=== PATIENT | male | born 1980 | race Caucasian/White ===

== ENCOUNTER 2019-04-09 16:22 | Emergency (ER) | payer SELFPAY ==
[~2019-04-09] VITALS: Ht 182.9 cm; Wt 104.3 kg
[2019-04-09 16:30] VITALS: BP 120/73
--- NOTE | 2019-04-09 16:45 | NUR ---
38 Y MALE BIB FAMILY C/O RIGHT FLANK PAIN X2 DAYS. PER FAMILY TRANSLATION, PTS PAIN 9/10. DENIES N/V/D. DENIES FEVER OR CHILLS, DENIES DYURIA. PT EXPERIENCING GAURDING BEHAVIOR. STATES HE HAS A CYSTS ON HIS KIDNEY. VSS AT THIS TIME. AA0X4. BED IS DOWN, LOCKED, BED RAIL X 1, ERMD TO SEE PT. HX OF KINDNEY PROBLEM
--- NOTE | 2019-04-09 17:03 | NUR ---
DR BROWN AT BEDSIDE
[2019-04-09] MEDS ORDERED: NACL 0.9% 1,000 ML IV ONE (17:12)
[2019-04-09] MEDS ORDERED: MORPHINE SULFATE 4 MG/ML SYR IVP ONE (17:15)
[2019-04-09] MEDS ORDERED: ONDANSETRON 4 MG/2 ML VIAL IVP ONE (17:15)
--- NOTE | 2019-04-09 17:23 | NUR ---
PT BEING TAKEN TO CT VIA WHEELCHAIR
[2019-04-09 17:31] LABS: APPEARANCE,URINE CLEAR (CLEAR); BILIRUBIN,URINE NEGATIVE (NEGATIVE); BLOOD, URINE TRACE-I (NEGATIVE); COLOR,URINE YELLOW (YELLOW); LEUKOCYTE ESTERASE ,URINE NEGATIVE (NEGATIVE); NITRITE, URINE NEGATIVE (NEGATIVE); UGLUCOSE NEGATIVE (NEGATIVE)
--- NOTE | 2019-04-09 17:49 | NUR ---
KETORALAC AND MORPHINE IVP BEING ADMINISTERED AT THIS TIME
[2019-04-09 17:56] LABS: BASOPHILS # (AUTO) 0.1 K/uL (0.00-0.22); BASOPHILS % (AUTO) 0.5 % (0.0-2.0); EOSINOPHILS # (AUTO) 0.4 K/uL (0-0.4); EOSINOPHILS % (AUTO) 3.3 % (0.0-4.0); HEMATOCRIT 45.3 % (36-52); HEMOGLOBIN 15.5 g/dL (12.0-18.0); LYMPHOCYTES # (AUTO) 2.1 K/uL (2.0-11.5); LYMPHOCYTES % (AUTO) 19.4 % (20.5-51.1); MEAN CORPUSCULAR HEMOGLOBIN 31 pg (27-31); MEAN CORPUSCULAR HGB CONC 34 g/dL (33-37); MEAN CORPUSCULAR VOLUME 90.7 fL (80-94); MONOCYTES # (AUTO) 0.9 K/uL (0.8-1.0); MONOCYTES % (AUTO) 8.8 % (1.7-9.3); NEUTROPHILS # (AUTO) 7.2 K/uL (1.8-7.7); PLATELET COUNT (AUTO) 217 K/uL (140-450); RED CELL DISTRIBUTION WIDTH 13.1 % (11.6-13.7); WHITE BLOOD COUNT (AUTO) 10.6 K/uL (4.8-10.8)
[2019-04-09 18:01] LABS: ANION GAP 15.1 (8-16); CARBON DIOXIDE 26.9 mmol/L (21-32); CREATININE 1.4 mg/dL (0.7-1.3)
[2019-04-09 18:07] LABS: ALBUMIN 4.1 g/dL (3.4-5.0); TOTAL BILIRUBIN 0.8 mg/dL (0.0-1.0)
--- NOTE | 2019-04-09 18:25 | NUR ---
VSS AT THIS TIME. AA0X4. PAIN 02/04.
[2019-04-09 18:40] VITALS: BP 140/75
--- NOTE | 2019-04-09 18:40 | NUR ---
Patient discharged with v/s stable. Written and verbal after care instructions given and explained. Patient alert, oriented and verbalized understanding of instructions. Ambulatory with steady gait. All questions addressed prior to discharge. ID band removed. Patient advised to follow up with PMD. Rx of ACETAMINOPHEN given. Patient educated on indication of medication including possible reaction and side effects. Opportunity to ask questions provided and answered. PT GIVEN COPY OF LAB RESULTS. FAMILY TRANSLATED.
== END 2019-04-09 18:40 | disposition home or self-care (01) ==
LOC: MED 16:22
DX: N28.89 Other specified disorders of kidney and ureter (principal); R10.11 Right upper quadrant pain
CPT/HCPCS: 36415; 74176; 80053; 81003; 83690; 85025; 96374; 96375; 99284; J2270; J2405; J7030